=== PATIENT | male | born 1960 | race Caucasian/White ===

== ENCOUNTER → 2021-04-14 | Day surgery (SDC) | payer OTHER ==
[~2021-04-14] VITALS: Ht 170 cm; Wt 71.0 kg
[~2021-04-14] MED LIST: ADDERALL 30 MG30 MG PO; ASPIRIN81 MG PO; ATARAX25 MG PO; BACLOFEN 10MG T10 MG PO; COZAAR50 MG PO; CYCLOBENZAPRINE10 MG PO; FEOSOL325 MG PO; MEDROL 4MG DOSEP4 MG PO; NAPROXEN500 MG PO; NORVASC5 MG PO; PERCOCET 5-3251 EACH PO; WELLBUTRIN XL300 MG PO
--- NOTE | 2021-04-15 11:47 | NUR ---
PT HAD A LRSR ON 04/14/2021. HE WILL D/C HOME WITH NO NEEDS AT THIS TIME.
== END | disposition home or self-care (01) ==
LOC: FAS 05:41 → EDSTATUS 07:00
DX: M12.812 Other specific arthropathies, not elsewhere classified, left shoulder (principal); I10 Essential (primary) hypertension; F41.9 Anxiety disorder, unspecified; F90.9 Attention-deficit hyperactivity disorder, unspecified type; Z88.0 Allergy status to penicillin; Z79.899 Other long term (current) drug therapy
CPT/HCPCS: 73020; 86850; 86900; 86901; 94010; 97162; 97166; 97530-GP; 97535; C1713; C1776; J0171; J1100; J1885; J2250; J2270; J2405; J2704; J2795; J3370; J7050; J7120